=== PATIENT | male | born 1965 | race Caucasian/White ===

== ENCOUNTER 2024-09-28 22:41 | Emergency (ER) | payer OTHER ==
[~2024-09-28] VITALS: Ht 188 cm; Wt 102.1 kg
[2024-09-28 22:58] LABS: BASO # 0.1 10*3/uL (0.0-0.1); EOS # 0.1 10*3/uL (0.0-0.4); EOS % 1.1 % (1.0-4.0); HEMATOCRIT 38.7 % (42.0-52.0); MEAN CELL VOLUME 89.8 fl (80.0-94.0); MEAN CORPUSCULAR HGB 29.9 pg (27.0-31.0); MEAN CORPUSCULAR HGB CONC 33.3 g/dl (33.0-37.0); MEAN PLATELET VOLUME 8.8 fl (9.6-12.3); MONO # 0.6 10*3/uL (0.1-1.0); MONO % 7.2 % (3.0-9.0); NEUT # 4.9 10*3/uL (2.3-7.9); PLATELET COUNT AUTOMATED 257 10*3/uL (130-400); RED BLOOD COUNT 4.31 10*6/uL (4.50-5.90); RED CELL DISTRI WIDTH 15.3 % (0-14.5)
[2024-09-28 23:20] LABS: ALKALINE PHOSPHATASE 145 U/L (46-116); BUN 6 mg/dl (9-23); CHLORIDE 94 mmol/L (98-107); POTASSIUM 4.2 mmol/L (3.4-5.1); SGPT/ALT 51 U/L (5-49); TOTAL PROTEIN 7.3 gm/dL (6.0-8.0)
[2024-09-28 23:23] LABS: ETHYL ALCOHOL < 3.0 mg/dl (<3)
[2024-09-29] MEDS ORDERED: diazePAM 10 MG/2 ML SYR IV ONE (01:15)
[2024-09-29] MEDS ORDERED: SODIUM CHLORIDE 0.9% 1,000 ML IV ONE (01:15)
[2024-09-29] MEDS ORDERED: Thiamine 200 MG/2 ML VIAL IV ONE (01:15)
[2024-09-29] MEDS ORDERED: Ondansetron Hydrochloride 4 MG/2 ML VIAL IV ONE (05:20)
[2024-09-29] MEDS ORDERED: METHOCARBAMOL 750 MG TAB PO ONE (05:20)
[2024-09-29] MEDS ORDERED: METHOCARBAMOL500 M1 PO (06:27)
== END 2024-09-29 07:00 | disposition home or self-care (01) ==
LOC: ED 22:41
PROVIDERS: Internal Medicine
DX: R07.89 Other chest pain (principal); M79.661 Pain in right lower leg; M79.662 Pain in left lower leg; D64.9 Anemia, unspecified; R74.01 Elevation of levels of liver transaminase levels; E87.1 Hypo-osmolality and hyponatremia

== ENCOUNTER 2024-11-25 16:31 | Emergency (ER) | payer OTHER ==
[~2024-11-25] VITALS: Ht 187.9 cm; Wt 101.2 kg
[~2024-11-25 16:31] MED LIST: ASPIRIN CHILDRE81 MG PO; ELIQUIS5 M1 PO; GABAPENTIN600 MG PO; IMDUR SA30 MG PO; LIPITOR80 MG PO; LOPRESSOR25 MG PO; LOSARTAN POTASS50 M1 PO; METHOCARBAMOL500 M1 PO; OXYCODONE-ACET1 EAC3 PO; PANTOPRAZOLE SO40 MG PO; PREDNISONE50 MG PO; TRAZODONE50 MG PO
[2024-11-25] MEDS ORDERED: MORPHINE Sulfate 2 MG/ML SYR IV ONE (17:15)
[2024-11-25] MEDS ORDERED: SODIUM CHLORIDE 0.9% 1,000 ML IV ONE (17:15)
[2024-11-25] MEDS ORDERED: IOHEXOL 300 MG/ML 100 ML VIAL IV ONE (17:35)
[2024-11-25 17:50] LABS: BASO # 0.1 10*3/uL (0.0-0.1); BASO % 0.9 % (0.0-1.0); EOS # 0.2 10*3/uL (0.0-0.4); EOS % 2.1 % (1.0-4.0); HEMATOCRIT 39.9 % (42.0-52.0); MEAN CELL VOLUME 88.9 fl (80.0-94.0); MEAN CORPUSCULAR HGB 29.6 pg (27.0-31.0); MEAN CORPUSCULAR HGB CONC 33.3 g/dl (33.0-37.0); MEAN PLATELET VOLUME 8.7 fl (9.6-12.3); MONO # 0.7 10*3/uL (0.1-1.0); MONO % 9.1 % (3.0-9.0); NEUT # 4.3 10*3/uL (2.3-7.9); NEUT % 54.8 % (47.0-73.0); PLATELET COUNT AUTOMATED 245 10*3/uL (130-400); RED BLOOD COUNT 4.49 10*6/uL (4.50-5.90); RED CELL DISTRI WIDTH 14.5 % (0-14.5); WHITE BLOOD COUNT 7.8 10*3/uL (4.8-10.8)
[2024-11-25 18:12] LABS: ALKALINE PHOSPHATASE 161 U/L (46-116); BUN < 5 mg/dl (9-23); CHLORIDE 93 mmol/L (98-107); LIPASE 38 U/L (12-53); POTASSIUM 3.9 mmol/L (3.4-5.1); SGPT/ALT 56 U/L (5-49); TOTAL PROTEIN 7.1 gm/dL (6.0-8.0)
[2024-11-25] MEDS ORDERED: Polyethylene Glycol 3350 17 GM PACKET PO ONE (19:50)
[2024-11-25] MEDS ORDERED: DOCUSATE SODIUM 100 MG CAP PO ONE (19:50)
[2024-11-25] MEDS ORDERED: Dexamethasone Sodium Phospha 20 MG/5 ML VIAL IV ONE (19:50)
[2024-11-25] MEDS ORDERED: PREDNISONE20 M1 PO (19:52)
[2024-11-25] MEDS ORDERED: COLACE100 MG PO (19:52)
[2024-11-25] MEDS ORDERED: MIRALAX POWDER17 G1 PO (19:52)
== END 2024-11-25 19:58 | disposition home or self-care (01) ==
LOC: ED 16:31
PROVIDERS: Internal Medicine
DX: K65.4 Sclerosing mesenteritis (principal); E86.0 Dehydration; K59.09 Other constipation; I10 Essential (primary) hypertension; Z79.899 Other long term (current) drug therapy; Z98.890 Other specified postprocedural states

== ENCOUNTER 2025-01-10 17:50 | Inpatient (IN) | payer OTHER ==
[~2025-01-10] VITALS: Ht 187.9 cm; Wt 102.1 kg
[~2025-01-10 17:50] MED LIST changes: +ALLOPURINOL100 MG PO; +ASPIRIN ADULT L81 M2 PO; +COLACE100 MG PO; +GABAPENTIN400 MG PO; +Lopressor25 MG PO; +METOPROLOL TART50 M1 PO; +MIRALAX POWDER17 G1 PO; +PREDNISONE20 M1 PO; +TOPCARE STOOL100 MG PO
[2025-01-10 18:15] VITALS: BP 134/70
[2025-01-10] MEDS ORDERED: Ondansetron Hydrochloride 4 MG/2 ML VIAL IV ONE (19:25)
[2025-01-10] MEDS ORDERED: SODIUM CHLORIDE 0.9% 1,000 ML IV ONE (19:25)
[2025-01-10 19:40] LABS: BASO # 0.0 10*3/uL (0.0-0.1); BASO % 0.7 % (0.0-1.0); EOS # 0.1 10*3/uL (0.0-0.4); EOS % 0.9 % (1.0-4.0); MEAN CELL VOLUME 88.2 fl (80.0-94.0); MEAN CORPUSCULAR HGB 29.3 pg (27.0-31.0); MEAN PLATELET VOLUME 8.6 fl (9.6-12.3); MONO # 0.5 10*3/uL (0.1-1.0); MONO % 8.2 % (3.0-9.0); NEUT # 3.2 10*3/uL (2.3-7.9); NEUT % 55.0 % (47.0-73.0); NUCLEATED RED BLOOD CELL 0.0 % (0.0-0.0); NUCLEATED RED BLOOD CELL 0.0 10*3/uL (0.0-0.0); PLATELET COUNT AUTOMATED 239 10*3/uL (130-400); RED CELL DISTRI WIDTH 14.2 % (0-14.5)
[2025-01-10] MEDS ORDERED: IOHEXOL 300 MG/ML 100 ML VIAL IV ONE (19:40)
[2025-01-10 19:53] LABS: BILIRUBIN Negative (Negative); BLOOD Negative (Negative); CLARITY Clear (Clear); COLOR Yellow (Yellow); KETONE Negative (Negative); LEUKO ESTERASE Negative (Negative); NITRITE Negative (Negative); PH 6.5 (4.5-8.0); SPECIFIC GRAVITY <= 1.005 (1.001-1.030); UROBILINOGEN 0.2 E.U./dl (0.0-1.0)
[2025-01-10 20:00] LABS: URINE AMPHETAMINES Negative (1000ng/ml); URINE BARBITURATES Negative (200ng/ml); URINE BENZODIAZEPINES Negative (200ng/ml); URINE CANNABINOIDS (THC) Negative (50ng/ml); URINE COCAINE Negative (300ng/ml); URINE METHADONE Negative (300ng/ml); URINE OPIATES Negative (300ng/ml); URINE PHENCYCLIDINE Negative (25ng/ml)
[2025-01-10 20:09] LABS: ETHYL ALCOHOL 3.5 mg/dl (<3); SGPT/ALT 132 U/L (5-49)
[2025-01-10 20:09] LABS: EPITHELIAL CELLS 0-2; WBC 0-2 wbc/hpf (0-5)
[2025-01-10 20:11] LABS: BUN < 5 mg/dl (9-23)
[2025-01-10 21:58] VITALS: BP 136/72
[2025-01-10] MEDS ORDERED: BISACODYL 5 MG TAB PO PRN (23:05)
[2025-01-10] MEDS ORDERED: Ondansetron Hydrochloride 4 MG/2 ML VIAL IV PRN (23:05)
[2025-01-10] MEDS ORDERED: BISACODYL 10 MG SUPP R PRN (23:05)
[2025-01-10] MEDS ORDERED: MAGNESIUM SULFATE 100 ML IV ONE (23:15)
[2025-01-10] MEDS ORDERED: METHOCARBAMOL 750 MG TAB PO PRN (23:15)
[2025-01-10] MEDS ORDERED: FOLIC ACID 1 MG TAB PO ONE (23:15)
[2025-01-10] MEDS ORDERED: Water, Sterile 10 ML VIAL IV PRN (23:15)
[2025-01-10] MEDS ORDERED: Dicyclomine Hydrochloride 20 MG TAB PO PRN (23:15)
[2025-01-10] MEDS ORDERED: hydrOXYzine 50 MG CAP PO PRN (23:15)
[2025-01-10] MEDS ORDERED: diazePAM 10 MG/2 ML SYR IV PRN (23:25)
[2025-01-10] MEDS ORDERED: LACTULOSE 20 GM/30 ML UDC PO SCH (23:40)
[2025-01-11 01:59] VITALS: BP 109/66
[2025-01-11 06:23] LABS: BASO # 0.1 10*3/uL (0.0-0.1); BASO % 0.9 % (0.0-1.0); EOS # 0.0 10*3/uL (0.0-0.4); EOS % 0.7 % (1.0-4.0); MEAN CELL VOLUME 89.2 fl (80.0-94.0); MEAN CORPUSCULAR HGB 29.5 pg (27.0-31.0); MEAN PLATELET VOLUME 9.7 fl (9.6-12.3); MONO # 0.5 10*3/uL (0.1-1.0); MONO % 7.9 % (3.0-9.0); NEUT # 3.8 10*3/uL (2.3-7.9); NEUT % 65.5 % (47.0-73.0); NUCLEATED RED BLOOD CELL 0.0 % (0.0-0.0); NUCLEATED RED BLOOD CELL 0.0 10*3/uL (0.0-0.0); PLATELET COUNT AUTOMATED 214 10*3/uL (130-400); RED CELL DISTRI WIDTH 14.5 % (0-14.5)
[2025-01-11 07:33] VITALS: BP 127/73
[2025-01-11 07:36] LABS: SGPT/ALT 101 U/L (5-49)
[2025-01-11 07:37] LABS: BUN < 5 mg/dl (9-23)
[2025-01-11 07:49] LABS: GAMMA GLUTAMYL TRANSFERASE 1334 U/L (0-73)
[2025-01-11] MEDS ORDERED: Albuterol Sulf/Ipratropium 3 ML VIAL NEB SCH (08:45)
[2025-01-11] MEDS ORDERED: MULTIVITAMIN 1 TAB TAB PO SCH (10:00)
[2025-01-11] MEDS ORDERED: APIXABAN 5 MG TAB PO SCH (10:00)
[2025-01-11 10:02] VITALS: BP 139/72
[2025-01-11] MEDS ORDERED: SUCRALFATE 1 GM TAB PO SCH (11:30)
[2025-01-11] MEDS ORDERED: LORazepam 1 MG TAB PO SCH ×2 (14:00)
[2025-01-11 17:00] VITALS: BP 149/80
[2025-01-11 20:00] VITALS: BP 149/75
[2025-01-11] MEDS ORDERED: GABAPENTIN 400 MG CAP PO SCH (22:00)
[2025-01-11] MEDS ORDERED: METOPROLOL TAR100 M1 PO (22:20)
[2025-01-11] MEDS ORDERED: LEVOTHYROXINE50 MC1 PO (22:23)
[2025-01-11] MEDS ORDERED: NORVASC5 MG PO (22:24)
[2025-01-12] VITALS: BP 129/78
[2025-01-12] MEDS ORDERED: LORazepam 1 MG TAB PO PRN
[2025-01-12] MEDS ORDERED: LORazepam 1 MG TAB PO SCH (02:00)
[2025-01-12 05:55] LABS: BASO # 0.1 10*3/uL (0.0-0.1); BASO % 1.2 % (0.0-1.0); EOS # 0.1 10*3/uL (0.0-0.4); EOS % 1.7 % (1.0-4.0); MEAN CELL VOLUME 89.6 fl (80.0-94.0); MEAN CORPUSCULAR HGB 29.3 pg (27.0-31.0); MEAN PLATELET VOLUME 9.5 fl (9.6-12.3); MONO # 0.6 10*3/uL (0.1-1.0); MONO % 9.1 % (3.0-9.0); NEUT # 3.2 10*3/uL (2.3-7.9); NEUT % 53.5 % (47.0-73.0); NUCLEATED RED BLOOD CELL 0.0 % (0.0-0.0); NUCLEATED RED BLOOD CELL 0.0 10*3/uL (0.0-0.0); PLATELET COUNT AUTOMATED 196 10*3/uL (130-400); RED CELL DISTRI WIDTH 14.3 % (0-14.5)
[2025-01-12 06:15] LABS: SGPT/ALT 75 U/L (5-49)
[2025-01-12 06:38] LABS: BUN < 5 mg/dl (9-23)
[2025-01-12 08:00] VITALS: BP 126/79
[2025-01-12] MEDS ORDERED: POTASSIUM CHLORIDE 20 MEQ TAB PO ONE (09:15)
[2025-01-12] MEDS ORDERED: ASPIRIN ENTERIC COATED 81 MG TAB PO SCH (10:00)
[2025-01-12] MEDS ORDERED: ISOSORBIDE MONONITRATE 30 MG TAB PO SCH (10:00)
[2025-01-12 12:00] VITALS: BP 132/81
[2025-01-12 16:00] VITALS: BP 119/71
[2025-01-12 20:00] VITALS: BP 128/59
[2025-01-13] VITALS: BP 147/69
[2025-01-13] MEDS ORDERED: LORazepam 1 MG TAB PO PRN
[2025-01-13 07:15] LABS: BUN < 5 mg/dl (9-23); SGPT/ALT 71 U/L (5-49)
[2025-01-13 08:00] VITALS: BP 122/72
[2025-01-13] MEDS ORDERED: LACTULOSE 20 GM/30 ML UDC PO SCH (10:00)
[2025-01-13] MEDS ORDERED: DOCUSATE SODIUM 100 MG CAP PO SCH (10:00)
[2025-01-13 12:00] VITALS: BP 114/65
[2025-01-13 16:00] VITALS: BP 120/68
[2025-01-13 20:00] VITALS: BP 124/73
[2025-01-14] VITALS: BP 125/74
[2025-01-14 07:15] LABS: BASO # 0.1 10*3/uL (0.0-0.1); BASO % 1.2 % (0.0-1.0); EOS # 0.2 10*3/uL (0.0-0.4); EOS % 3.0 % (1.0-4.0); MEAN CELL VOLUME 91.7 fl (80.0-94.0); MEAN CORPUSCULAR HGB 29.7 pg (27.0-31.0); MEAN PLATELET VOLUME 10.1 fl (9.6-12.3); MONO # 0.7 10*3/uL (0.1-1.0); MONO % 8.9 % (3.0-9.0); NEUT # 4.4 10*3/uL (2.3-7.9); NEUT % 57.1 % (47.0-73.0); NUCLEATED RED BLOOD CELL 0.0 % (0.0-0.0); NUCLEATED RED BLOOD CELL 0.0 10*3/uL (0.0-0.0); PLATELET COUNT AUTOMATED 221 10*3/uL (130-400); RED CELL DISTRI WIDTH 14.9 % (0-14.5)
[2025-01-14 07:45] LABS: SGPT/ALT 62 U/L (5-49)
[2025-01-14 07:46] LABS: BUN < 5 mg/dl (9-23)
[2025-01-14 08:00] VITALS: BP 142/87
[2025-01-14] MEDS ORDERED: KRISTALOSE20 GM PO (11:35)
[2025-01-14] MEDS ORDERED: Carafate1 GM PO (11:35)
[2025-01-14 12:00] VITALS: BP 121/69
== END 2025-01-14 13:53 | disposition home or self-care (01) | DRG 280 ==
LOC: ED 17:50 → EDHOLD 22:07 → 5E 22:07
PROVIDERS: Nurse Practitioner Family; Student in an Organized Health Care Education/Training Program; ADMIT Internal Medicine; ATTEND Internal Medicine
DX: K70.30 Alcoholic cirrhosis of liver without ascites (principal); F10.139 Alcohol abuse with withdrawal, unspecified; T40.2X5A Adverse effect of other opioids, initial encounter; G90.9 Disorder of the autonomic nervous system, unspecified; E87.1 Hypo-osmolality and hyponatremia; E87.8 Other disorders of electrolyte and fluid balance, not elsewhere classified; K57.90 Diverticulosis of intestine, part unspecified, without perforation or abscess without bleeding; K65.4 Sclerosing mesenteritis; K59.03 Drug induced constipation; D64.9 Anemia, unspecified; H81.13 Benign paroxysmal vertigo, bilateral; E78.2 Mixed hyperlipidemia; K70.10 Alcoholic hepatitis without ascites; I10 Essential (primary) hypertension; K21.9 Gastro-esophageal reflux disease without esophagitis; E03.9 Hypothyroidism, unspecified; K29.20 Alcoholic gastritis without bleeding; G43.909 Migraine, unspecified, not intractable, without status migrainosus; K76.0 Fatty (change of) liver, not elsewhere classified; M87.052 Idiopathic aseptic necrosis of left femur; E87.6 Hypokalemia; I48.0 Paroxysmal atrial fibrillation; I25.2 Old myocardial infarction; Z95.5 Presence of coronary angioplasty implant and graft; Z87.891 Personal history of nicotine dependence; Z83.3 Family history of diabetes mellitus; Z80.42 Family history of malignant neoplasm of prostate; Z83.6 Family history of other diseases of the respiratory system; Z79.82 Long term (current) use of aspirin; Z79.899 Other long term (current) drug therapy; Y92.89 Other specified places as the place of occurrence of the external cause

== ENCOUNTER → 2025-02-27 | Day surgery (SDC) | payer OTHER ==
[~2025-02-27] VITALS: Ht 187.9 cm; Wt 99.8 kg
[~2025-02-27] MED LIST changes: +Carafate1 GM PO; +KRISTALOSE20 GM PO; +LEVOTHYROXINE50 MC1 PO; +Lactated Ringer's Solution 1,000 ML IV ONE; +Lidocaine Hydrochloride 2% 5 ML SDV IM ONE; +METOPROLOL TAR100 M1 PO; +NORVASC5 MG PO; +PROPOFOL 200 MG/20 ML VIAL IV ONE
[2025-02-27 09:00] VITALS: BP 182/96
[2025-02-27 10:36] VITALS: BP 135/78
[2025-02-27 10:51] VITALS: BP 130/84
[2025-02-27 11:05] VITALS: BP 136/85
== END | disposition home or self-care (01) ==
LOC: SDC 02-23 08:45
PROVIDERS: ATTEND Surgery
DX: Z12.11 Encounter for screening for malignant neoplasm of colon (principal); R10.13 Epigastric pain; K29.70 Gastritis, unspecified, without bleeding; D12.3 Benign neoplasm of transverse colon; D12.5 Benign neoplasm of sigmoid colon; K63.5 Polyp of colon; I10 Essential (primary) hypertension; I48.91 Unspecified atrial fibrillation; J44.9 Chronic obstructive pulmonary disease, unspecified; K21.9 Gastro-esophageal reflux disease without esophagitis; E78.00 Pure hypercholesterolemia, unspecified; F41.9 Anxiety disorder, unspecified; Z98.890 Other specified postprocedural states; Z89.421 Acquired absence of other right toe(s); Z87.891 Personal history of nicotine dependence; Z79.899 Other long term (current) drug therapy